=== PATIENT | female | born 1955 | race Caucasian/White ===

== ENCOUNTER → 2019-06-14 | Outpatient (CLI) | payer MEDICARE ==
--- NOTE | 2019-06-14 10:05 | Diagnostic Imaging Report ---
EXAM: US ABDOMEN COMPLETE DATE: 06/14/2019 8:39 AM INDICATION: Abdominal pain COMPARISON: None TECHNIQUE: Transverse and longitudinal henderson scale and color doppler sonographic images of the upper abdomen were obtained. FINDINGS: There is no evidence of fluid or masses seen in the area of clinical concern in the right lower quadrant. LIVER 22.1 cm in the right midclavicular line. Increased echogenicity of the liver with mildly nodular surface contour, no masses. SPLEEN 15.6 cm in maximum diameter. Normal echogenicity, no masses. GALLBLADDER No gallbladder wall thickening, distension, stone, or pericholecystic fluid. NEgative reported sonographic Contreras's sign. BILE DUCTS No intra nor extra-hepatic biliary dilation. Common bile duct measures 0.5cm PANCREAS: Visualized portions are normal. RIGHT KIDNEY: 11.0 cm Echogenicity: Normal Collecting System: No hydronephrosis Stones: None Cyst/Mass: None LEFT KIDNEY: 11.3 cm Echogenicity: Normal Collecting System: No hydronephrosis Stones: None Cyst/Mass: None VESSELS: Aorta: Visualized portions are within normal size limits Inferior Vena Cava: Visualized portions are normal Main Portal Vein: 1. cm, normal size with hepatopetal flow. FREE FLUID: None IMPRESSION: Hepatomegaly, hepatic steatosis, and mildly nodular surface contour compatible with early cirrhotic liver morphology. Splenomegaly. Signed by: Corinna Jane MD on 06/14/2019 10:02 AM
== END ==
LOC: US 08:30
PROVIDERS: ATTEND Internal Medicine
DX: R10.11 Right upper quadrant pain (principal)
CPT/HCPCS: 76700

== ENCOUNTER 2021-06-21 18:08 | Inpatient (IN) | payer MEDICARE ==
[~2021-06-21] VITALS: Ht 162.6 cm; Wt 128.4 kg
[2021-06-21 19:07] LABS: BASOPHILS % 0.6 % (0.0-1.0); EOSINOPHILS % 0.4 % (0.0-6.0); HEMATOCRIT 25.1 % (34.2-44.1); LYMPHOCYTES # (AUTO) 0.4 (1.0-3.2); LYMPHOCYTES % 5.9 % (18.0-39.1); MEAN CORPUSCULAR HGB CONC 23.5 g/dL (31-35); MEAN CORPUSCULAR VOLUME 72.3 fL (81-99); MONOCYTES # (AUTO) 0.2 (0.2-0.8); MONOCYTES % 2.5 % (4.4-11.3); NEUTROPHILS # (AUTO) 6.4 (2.1-6.9); PLATELET COUNT 267 x10e3/uL (140-360); RED BLOOD COUNT 3.47 x10e6/uL (3.6-5.1); RED CELL DISTRIBUTION WIDTH 18.9 % (11.7-14.4)
[2021-06-21 19:11] LABS: HEMOGLOBIN 5.9 g/dL (12.0-16.0)
[2021-06-21 19:12] LABS: INR 1.05; PARTIAL THROMBOPLASTIN TIME 24.7 seconds (23.8-35.5); PROTHROMBIN TIME 13.9 seconds (11.9-14.5)
[2021-06-21 19:21] LABS: ALBUMIN 3.4 g/dL (3.5-5.0); ALBUMIN/GLOBULIN RATIO 0.8 (0.8-2.0); ALKALINE PHOSPHATASE 96 IU/L (40-150); ANION GAP 16.8 mmol/L (8-16); BLOOD UREA NITROGEN 16 mg/dL (7-26); BUN/CREATININE RATIO 13 (6-25); CALCIUM 8.8 mg/dL (8.4-10.2); CARBON DIOXIDE 22 mmol/L (22-29); CHLORIDE 101 mmol/L (98-107); CREATININE, SERUM 1.19 mg/dL (0.57-1.11); EST GLOMERULAR FILTRATION RATE 46 ML/MIN (60-); GLUCOSE 304 mg/dL (74-118); POTASSIUM 3.8 mmol/L (3.5-5.1); SODIUM 136 mmol/L (136-145)
[2021-06-21 19:22] LABS: ALANINE AMINOTRANSFERASE < 6 IU/L (0-55)
[2021-06-21] MEDS ORDERED: SODIUM CHLORIDE 0.9% 250ML 250 ML IV ONE (19:45)
[2021-06-21] MEDS ORDERED: ONDANSETRON HCL INJ 2MG/ML 2ML 2 MG/ML VIAL IV PRN (19:45)
[2021-06-22 01:20] LABS: FERRITIN 6.08 ng/mL (4.63-204.00)
[2021-06-22] MEDS ORDERED: SODIUM CHLORIDE 0.9% 250ML 250 ML ONE ×3 (02:25→17:04)
[2021-06-22 07:35] LABS: BASOPHILS % 0.2 % (0.0-1.0); HEMATOCRIT 26.1 % (34.2-44.1); LYMPHOCYTES # (AUTO) 0.5 (1.0-3.2); LYMPHOCYTES % 9.4 % (18.0-39.1); MEAN CORPUSCULAR HEMOGLOBIN 19.2 pg (28-32); MEAN CORPUSCULAR HGB CONC 26.1 g/dL (31-35); MEAN CORPUSCULAR VOLUME 73.5 fL (81-99); MONOCYTES # (AUTO) 0.4 (0.2-0.8); MONOCYTES % 7.1 % (4.4-11.3); NEUTROPHILS # (AUTO) 4.6 (2.1-6.9); NEUTROPHILS % 82.8 % (38.7-80.0); PLATELET COUNT 188 x10e3/uL (140-360); RED BLOOD COUNT 3.55 x10e6/uL (3.6-5.1); RED CELL DISTRIBUTION WIDTH 18.5 % (11.7-14.4)
[2021-06-22 07:42] LABS: HEMOGLOBIN 6.8 g/dL (12.0-16.0)
[2021-06-22 07:54] LABS: ANION GAP 9.8 mmol/L (8-16); CALCIUM 8.4 mg/dL (8.4-10.2); CREATININE, SERUM 0.83 mg/dL (0.57-1.11); POTASSIUM 3.8 mmol/L (3.5-5.1)
[2021-06-22] MEDS ORDERED: DIPHENHYDRAMINE HCL 25 MG CAP PO PRN (08:00)
[2021-06-22] MEDS ORDERED: ACETAMINOPHEN 325 MG TAB PO PRN (08:00)
[2021-06-22] MEDS ORDERED: SIMETHICONE 80 MG CHEW PO PRN (08:00)
[2021-06-22] MEDS ORDERED: ALBUTEROL/IPRATROPIUM 3 ML NEB NEB PRN (08:00)
[2021-06-22] MEDS ORDERED: POTASSIUM CHLORIDE 20 MEQ TAB CR PO PRN (08:00)
[2021-06-22] MEDS ORDERED: LIDOCAINE 4% PATCH TP PRN (08:00)
[2021-06-22] MEDS ORDERED: DOCUSATE SODIUM 100 MG CAP PO PRN (08:00)
[2021-06-22] MEDS ORDERED: ONDANSETRON HCL INJ 2MG/ML 2ML 2 MG/ML VIAL IV PRN (08:00)
[2021-06-22] MEDS ORDERED: TRAMADOL HCL 50 MG TAB PO PRN (08:00)
[2021-06-22] MEDS ORDERED: BENZONATATE 100 MG CAP PO PRN (08:00)
[2021-06-22] MEDS ORDERED: MELATONIN 5 MG TABLET PO PRN (08:00)
[2021-06-22] MEDS ORDERED: HYDRALAZINE HCL 20 MG/ML VIAL IV PRN (08:00)
[2021-06-22] MEDS ORDERED: DEXTROSE 50% SYRINGE 50 ML IV PRN (08:00)
[2021-06-22] MEDS ORDERED: SODIUM CHLORIDE 0.9% 250ML 250 ML IV ONE (08:15)
[2021-06-22] MEDS ORDERED: Pantoprazole IV 40 MG/50 ML BAG IV SCH (09:00)
[2021-06-22 09:07] LABS: LYMPHOCYTES % (MANUAL) 14 % (19-48); MONOCYTES % (MANUAL) 9 % (3.4-9.0); NEUTROPHILS % (MANUAL) 77 % (40-74); PLATELET MORPHOLOGY COMMENT NORMAL; RBC MORPHOLOGY COMMENT ABNORMAL
[2021-06-22 09:09] LABS: POIKILOCYTOSIS SLIGHT; POLYCHROMASIA SL
[2021-06-22 09:10] LABS: ANISOCYTOSIS SLIGHT
[2021-06-22 09:11] LABS: MICROCYTOSIS MODE
[2021-06-22] MEDS: Pantoprazole IV 40 MG in SODIUM CHLORIDE 0.9% 50ML 50 ML IV SCH ×2 (09:14→17:00)
[2021-06-22] MEDS ORDERED: SODIUM CHLORIDE 0.9% 50ML 50 ML ONE (11:44)
[2021-06-22] MEDS ORDERED: CYANOCOBALAMIN INJ 1,000 MCG/ML VIAL IM SCH (12:45)
[2021-06-22 13:27] VITALS: BP 112/58
[2021-06-22 14:05] VITALS: BP 112/58
[2021-06-22 14:12] VITALS: BP 112/58
[2021-06-22] MEDS ORDERED: COLACE100 MG PO (14:22)
[2021-06-22] MEDS ORDERED: FUROSEMIDE40 MG PO (14:22)
[2021-06-22] MEDS ORDERED: [UNRECOGNIZED DRUG - OTHER] PO (14:22)
[2021-06-22] MEDS ORDERED: ATORVASTATIN CA20 MG PO (14:22)
[2021-06-22] MEDS ORDERED: [UNRECOGNIZED DRUG - OTHER] PO (14:22)
[2021-06-22] MEDS ORDERED: ASPIRIN81 MG PO (14:22)
[2021-06-22] MEDS ORDERED: TRICOR145 MG PO (14:22)
[2021-06-22] MEDS ORDERED: SPIRONOLACTONE25 MG PO (14:22)
[2021-06-22] MEDS ORDERED: METFORMIN HCL500 MG PO (14:22)
[2021-06-22] MEDS ORDERED: NEURONTIN300 MG PO (14:22)
[2021-06-22] MEDS ORDERED: SEROQUEL100 MG PO (14:22)
[2021-06-22 15:51] VITALS: BP 117/58
[2021-06-22] MEDS: FOLIC ACID 1 MG TAB PO SCH (17:10)
[2021-06-22 21:00] VITALS: BP 117/58
[2021-06-22 21:22] VITALS: BP 123/68
[2021-06-22] MEDS ORDERED: BISACODYL 5 MG TAB EC PO ONE (23:30)
[2021-06-23] VITALS (10 sets, daily range): BP systolic 105–122; BP diastolic 53–77
[2021-06-23] MEDS ORDERED: BISACODYL 5 MG TAB EC PO ONE
[2021-06-23] MEDS ORDERED: CITRATE OF MAGNESIA 300ML BOTTLE PO ONE ×2 (05:00→07:00)
[2021-06-23] MEDS: BUDESONIDE 0.5MG/2 ML NEB INH SCH ×2 (07:00→19:00)
[2021-06-23] MEDS ORDERED: PANTOPRAZOLE SOD 40 MG TABEC PO SCH (07:30)
[2021-06-23 07:49] LABS: BASOPHILS % 0.8 % (0.0-1.0); EOSINOPHILS # (AUTO) 0.1 (0.0-0.4); EOSINOPHILS % 1.7 % (0.0-6.0); HEMATOCRIT 31.5 % (34.2-44.1); HEMOGLOBIN 8.6 g/dL (12.0-16.0); MEAN CORPUSCULAR HEMOGLOBIN 21.2 pg (28-32); MEAN CORPUSCULAR HGB CONC 27.3 g/dL (31-35); MEAN CORPUSCULAR VOLUME 77.6 fL (81-99); MONOCYTES # (AUTO) 0.6 (0.2-0.8); MONOCYTES % 11.5 % (4.4-11.3); NEUTROPHILS # (AUTO) 3.1 (2.1-6.9); NEUTROPHILS % 65.6 % (38.7-80.0); PLATELET COUNT 181 x10e3/uL (140-360); RED BLOOD COUNT 4.06 x10e6/uL (3.6-5.1)
[2021-06-23 08:08] LABS: ANION GAP 11.5 mmol/L (8-16); CALCIUM 8.3 mg/dL (8.4-10.2); CREATININE, SERUM 0.82 mg/dL (0.57-1.11); POTASSIUM 3.5 mmol/L (3.5-5.1)
[2021-06-23] MEDS: Pantoprazole IV 40 MG in SODIUM CHLORIDE 0.9% 50ML 50 ML IV SCH ×2 (09:00→17:00)
[2021-06-23] MEDS: FOLIC ACID 1 MG TAB PO SCH (09:00)
[2021-06-23] MEDS: METHYLPREDNISOLONE SOD SUCC 40 MG/ML VIAL 1ML IV SCH ×2 (09:00→20:28)
[2021-06-23] MEDS ORDERED: BISACODYL 5 MG TAB EC PO NR (09:30)
[2021-06-23] MEDS: IRON SUCROSE 100 MG in SODIUM CHLORIDE 0.9% 100 ML 100 ML IV SCH (10:00)
[2021-06-23] MEDS ORDERED: FENTANYL CITRATE/PF 100MCG/2 ML INJ ONE (12:46)
[2021-06-23] MEDS ORDERED: HYOSCYAMINE SULFATE 0.5 MG/ML INJ ONE (13:12)
[2021-06-23] MEDS ORDERED: POVIDONE IODINE 0.05% 0.05 % ML PO ONE (13:12)
[2021-06-23] MEDS ORDERED: LIDOCAINE HCL 2% LOCAL INJ 5 ML SDV VIAL INJ ONE (13:12)
[2021-06-23] MEDS ORDERED: GLUCAGON FOR INJ 1 MG VIAL ONE (13:12)
[2021-06-23] MEDS ORDERED: EPHEDRINE SULFATE INJ 50 MG/ML VIAL ONE (13:12)
[2021-06-23] MEDS ORDERED: PROPOFOL IV EMULSION 10 MG/ML 20 ML VIAL ONE (13:12)
[2021-06-24] VITALS (7 sets, daily range): BP systolic 118–134; BP diastolic 48–55
[2021-06-24 06:09] LABS: BASOPHILS % 0.2 % (0.0-1.0); HEMATOCRIT 29.9 % (34.2-44.1); HEMOGLOBIN 8.1 g/dL (12.0-16.0); LYMPHOCYTES # (AUTO) 0.4 (1.0-3.2); LYMPHOCYTES % 7.4 % (18.0-39.1); MEAN CORPUSCULAR HEMOGLOBIN 21.2 pg (28-32); MEAN CORPUSCULAR HGB CONC 27.1 g/dL (31-35); MEAN CORPUSCULAR VOLUME 78.3 fL (81-99); MONOCYTES # (AUTO) 0.4 (0.2-0.8); MONOCYTES % 7.8 % (4.4-11.3); NEUTROPHILS # (AUTO) 4.2 (2.1-6.9); NEUTROPHILS % 84.2 % (38.7-80.0); PLATELET COUNT 178 x10e3/uL (140-360); RED BLOOD COUNT 3.82 x10e6/uL (3.6-5.1); RED CELL DISTRIBUTION WIDTH 21.2 % (11.7-14.4)
[2021-06-24 06:27] LABS: ANION GAP 9.7 mmol/L (8-16); CALCIUM 8.2 mg/dL (8.4-10.2); CREATININE, SERUM 0.72 mg/dL (0.57-1.11); POTASSIUM 3.7 mmol/L (3.5-5.1)
[2021-06-24] MEDS: FOLIC ACID 1 MG TAB PO SCH (09:23)
[2021-06-24] MEDS: FLUCONAZOLE 100 MG TAB PO SCH (09:23)
[2021-06-24] MEDS: Pantoprazole IV 40 MG in SODIUM CHLORIDE 0.9% 50ML 50 ML IV SCH ×2 (09:23→16:26)
[2021-06-24] MEDS: METHYLPREDNISOLONE SOD SUCC 40 MG/ML VIAL 1ML IV SCH ×2 (09:23→21:06)
[2021-06-24] MEDS: IRON SUCROSE 100 MG in SODIUM CHLORIDE 0.9% 100 ML 100 ML IV SCH (10:30)
[2021-06-24] MEDS ORDERED: XANAX2 MG PO (17:26)
[2021-06-24] MEDS ORDERED: CYMBALTA30 MG PO (17:26)
[2021-06-24] MEDS: ALBUTEROL/IPRATROPIUM 3 ML NEB NEB SCH (22:01)
[2021-06-25] VITALS: BP 105/58
[2021-06-25 04:00] VITALS: BP 114/55
[2021-06-25 04:43] LABS: BASOPHILS % 0.2 % (0.0-1.0); HEMATOCRIT 31.2 % (34.2-44.1); LYMPHOCYTES # (AUTO) 0.4 (1.0-3.2); LYMPHOCYTES % 8.1 % (18.0-39.1); MEAN CORPUSCULAR HEMOGLOBIN 20.6 pg (28-32); MEAN CORPUSCULAR HGB CONC 25.6 g/dL (31-35); MEAN CORPUSCULAR VOLUME 80.4 fL (81-99); MONOCYTES # (AUTO) 0.3 (0.2-0.8); MONOCYTES % 6.3 % (4.4-11.3); NEUTROPHILS # (AUTO) 3.8 (2.1-6.9); NEUTROPHILS % 85.2 % (38.7-80.0); PLATELET COUNT 163 x10e3/uL (140-360); RED BLOOD COUNT 3.88 x10e6/uL (3.6-5.1); RED CELL DISTRIBUTION WIDTH 22.4 % (11.7-14.4)
[2021-06-25 05:03] LABS: CREATININE, SERUM 0.76 mg/dL (0.57-1.11)
[2021-06-25] MEDS: BUDESONIDE 0.5MG/2 ML NEB INH SCH (07:00)
[2021-06-25 07:15] LABS: LYMPHOCYTES % (MANUAL) 10 % (19-48); MONOCYTES % (MANUAL) 4 % (3.4-9.0); NEUTROPHILS % (MANUAL) 86 % (40-74)
[2021-06-25 07:16] LABS: ANISOCYTOSIS MODERATE; HYPOCHROMASIA MODERATE; MICROCYTOSIS SLIGHT; PLATELET ESTIMATE ADEQUATE; PLATELET MORPHOLOGY COMMENT NORMAL; RBC MORPHOLOGY COMMENT ABNORMAL
[2021-06-25] MEDS: ALBUTEROL/IPRATROPIUM 3 ML NEB NEB SCH ×2 (07:23→13:48)
[2021-06-25] MEDS ORDERED: PANTOPRAZOLE SOD 40 MG TABEC PO SCH (07:30)
[2021-06-25] MEDS ORDERED: SODIUM CHLORIDE 0.9% 250ML 250 ML ONE (07:51)
[2021-06-25 08:00] VITALS: BP 123/58
[2021-06-25 08:30] VITALS: BP 123/58
[2021-06-25] MEDS: FOLIC ACID 1 MG TAB PO SCH (09:48)
[2021-06-25] MEDS: IRON SUCROSE 100 MG in SODIUM CHLORIDE 0.9% 100 ML 100 ML IV SCH (09:48)
[2021-06-25] MEDS: METHYLPREDNISOLONE SOD SUCC 40 MG/ML VIAL 1ML IV SCH (09:48)
[2021-06-25] MEDS: FLUCONAZOLE 100 MG TAB PO SCH (09:48)
[2021-06-25 11:53] VITALS: BP 117/61
[2021-06-25] MEDS ORDERED: NYSTATIN 100,000 UNITS/GM CRM 30GM TUBE TOP SCH (12:20)
[2021-06-25] MEDS ORDERED: PROTONIX40 MG PO (12:41)
[2021-06-25] MEDS ORDERED: PREDNISONE20 MG PO (12:44)
[2021-06-25] MEDS ORDERED: FEROSUL325 MG PO (12:44)
[2021-06-25] MEDS ORDERED: ONDANSETRON HCL 4 MG ORAL DISINTEGRATING TAB PO PRN (12:45)
== END 2021-06-25 15:16 | disposition home or self-care (01) | DRG 377 ==
LOC: ER 19:00 → ERHOLD 19:35 → MED/SURG2 06-22 13:21
PROVIDERS: ADMIT Internal Medicine; ATTEND Internal Medicine
PROC: 0DB58ZX Excision of Esophagus, Via Natural or Artificial Opening Endoscopic, Diagnostic (ICD-10-PCS; 2021-06-23)
PROC: 0D758ZZ Dilation of Esophagus, Via Natural or Artificial Opening Endoscopic (ICD-10-PCS; 2021-06-23)
PROC: 0DBP8ZX Excision of Rectum, Via Natural or Artificial Opening Endoscopic, Diagnostic (ICD-10-PCS; 2021-06-23)
PROC: 0DBN8ZX Excision of Sigmoid Colon, Via Natural or Artificial Opening Endoscopic, Diagnostic (ICD-10-PCS; 2021-06-23)
PROC: 0DB98ZX Excision of Duodenum, Via Natural or Artificial Opening Endoscopic, Diagnostic (ICD-10-PCS; principal; 2021-06-23 15:00)
PROC: 0DB78ZX Excision of Stomach, Pylorus, Via Natural or Artificial Opening Endoscopic, Diagnostic (ICD-10-PCS; 2021-06-23 15:00)
PROC: 0DB68ZX Excision of Stomach, Via Natural or Artificial Opening Endoscopic, Diagnostic (ICD-10-PCS; 2021-06-23 15:00)
DX: K29.71 Gastritis, unspecified, with bleeding (principal); J96.01 Acute respiratory failure with hypoxia; J44.1 Chronic obstructive pulmonary disease with (acute) exacerbation; Z68.42 Body mass index [BMI] 45.0-49.9, adult; J44.9 Chronic obstructive pulmonary disease, unspecified; E66.01 Morbid (severe) obesity due to excess calories; E03.9 Hypothyroidism, unspecified; E53.8 Deficiency of other specified B group vitamins; K22.2 Esophageal obstruction; K63.5 Polyp of colon; K62.1 Rectal polyp; D50.9 Iron deficiency anemia, unspecified; I25.2 Old myocardial infarction; Z86.74 Personal history of sudden cardiac arrest; F17.200 Nicotine dependence, unspecified, uncomplicated; I27.21 Secondary pulmonary arterial hypertension; G47.33 Obstructive sleep apnea (adult) (pediatric); I11.0 Hypertensive heart disease with heart failure; I50.9 Heart failure, unspecified; I25.10 Atherosclerotic heart disease of native coronary artery without angina pectoris
CPT/HCPCS: 36415; 43239; 45378; 45385; 71045; 80048; 80053; 82607; 82728; 82746; 82948; 83036; 83540; 83880; 84466; 84484; 85025; 85045; 85610; 85730; 86850; 86900; 86920; 88305; 88312; 93005; 93306; 94640; 94660; 99284; J1610; J1756; J1980; J2001; J2920; J3010; J3420; J7050; P9016; U0002

== ENCOUNTER 2024-06-24 21:09 | Emergency (ER) | payer MEDICARE ==
[~2024-06-24] VITALS: Ht 162.6 cm; Wt 128.4 kg
[~2024-06-24 21:09] MED LIST: ASPIRIN81 MG PO; ATORVASTATIN CA20 MG PO; COLACE100 MG PO; CYMBALTA30 MG PO; FEROSUL325 MG PO; FUROSEMIDE40 MG PO; METFORMIN HCL500 MG PO; NEURONTIN300 MG PO; PREDNISONE20 MG PO; PROTONIX40 MG PO; SEROQUEL100 MG PO; SPIRONOLACTONE25 MG PO; TRICOR145 MG PO; XANAX2 MG PO; [UNRECOGNIZED DRUG - OTHER] PO; [UNRECOGNIZED DRUG - OTHER] PO
[2024-06-24 22:13] LABS: BASOPHILS # (AUTO) 0.1 (0.0-0.1); BASOPHILS % 0.8 % (0.0-1.0); EOSINOPHILS # (AUTO) 0.1 (0.0-0.4); EOSINOPHILS % 1.8 % (0.0-6.0); HEMATOCRIT 41.2 % (34.2-44.1); HEMOGLOBIN 12.7 g/dL (12.0-16.0); LYMPHOCYTES # (AUTO) 1.1 (1.0-3.2); LYMPHOCYTES % 14.1 % (18.0-39.1); MEAN CORPUSCULAR HEMOGLOBIN 28.2 pg (28-32); MEAN CORPUSCULAR HGB CONC 30.8 g/dL (31-35); MEAN CORPUSCULAR VOLUME 91.4 fL (81-99); MONOCYTES # (AUTO) 0.8 (0.2-0.8); MONOCYTES % 9.4 % (4.4-11.3); NEUTROPHILS # (AUTO) 5.9 (2.1-6.9); NEUTROPHILS % 73.6 % (38.7-80.0); PLATELET COUNT 163 x10e3/uL (140-360); RED BLOOD COUNT 4.51 x10e6/uL (3.6-5.1); RED CELL DISTRIBUTION WIDTH 13.3 % (11.7-14.4); WHITE BLOOD COUNT 7.97 x10e3/uL (4.8-10.8)
[2024-06-24 22:14] LABS: ALBUMIN 4.3 g/dL (3.5-5.0); ALBUMIN/GLOBULIN RATIO 1.1 (0.8-2.0); ANION GAP 15.5 mmol/L (8-16); BILIRUBIN,TOTAL 0.6 mg/dL (0.2-1.2); CALCIUM 9.9 mg/dL (8.4-10.2); CREATININE, SERUM 1.56 mg/dL (0.57-1.11); POTASSIUM 3.5 mmol/L (3.5-5.1); TOTAL PROTEIN 8.3 g/dL (6.5-8.1)
[2024-06-25] MEDS: ONDANSETRON HCL INJ 2MG/ML 2ML 2 MG/ML VIAL IV STA (01:22)
[2024-06-25] MEDS ORDERED: ONDANSETRON HCL INJ 2MG/ML 2ML 2 MG/ML VIAL ONE (01:24)
[2024-06-25 01:30] VITALS: PULSE 76; RESP 17; TEMP 98.9; O2SAT 98
[2024-06-25] MEDS ORDERED: AMOX TR-K CLV1 EAC2 PO (01:32)
[2024-06-25] MEDS ORDERED: ONDANSETRON ODT4 MG SL (01:32)
== END 2024-06-25 01:50 | disposition home or self-care (01) ==
LOC: ER 21:15
DX: R50.9 Fever, unspecified (principal); J18.9 Pneumonia, unspecified organism; U07.1 COVID-19; R06.02 Shortness of breath; R05.9 Cough, unspecified; R10.84 Generalized abdominal pain; E11.65 Type 2 diabetes mellitus with hyperglycemia; J44.9 Chronic obstructive pulmonary disease, unspecified; I50.9 Heart failure, unspecified; E03.9 Hypothyroidism, unspecified; D64.9 Anemia, unspecified; E78.5 Hyperlipidemia, unspecified; F32.A Depression, unspecified; R94.31 Abnormal electrocardiogram [ECG] [EKG]; F17.210 Nicotine dependence, cigarettes, uncomplicated
CPT/HCPCS: 36415; 71045; 80053; 83880; 84484; 85025; 93005; 99284; J2405; U0002

== ENCOUNTER 2024-09-21 11:43 | Inpatient (IN) | payer MEDICARE ==
[~2024-09-21] VITALS: Ht 162.6 cm; Wt 134.7 kg
[2024-09-21] VITALS (7 sets, daily range): BP systolic 118–129; BP diastolic 64–72; PULSE 87–97; RESP 20–24; TEMP 97.9–98.2; O2SAT 100
[~2024-09-21 11:43] MED LIST changes: +AMOX TR-K CLV1 EAC2 PO; +ONDANSETRON ODT4 MG SL
[2024-09-21] MEDS ORDERED: SODIUM CHLORIDE FLUSH 10 ML SYR IV PRN (12:00)
[2024-09-21] MEDS: METHYLPREDNISOLONE SOD SUCC 125 MG/2ML VIAL IV ONE (12:09)
[2024-09-21] MEDS: LEVOFLOXACIN 750MG/D5W 150ML 150 ML IV SCH (12:09)
[2024-09-21] MEDS: ALBUTEROL/IPRATROPIUM 3 ML NEB NEB ONE (12:17)
[2024-09-21 12:36] LABS: ALBUMIN 3.4 g/dL (3.5-5.0); ALBUMIN/GLOBULIN RATIO 0.8 (0.8-2.0); BILIRUBIN,TOTAL 1.1 mg/dL (0.2-1.2); CALCIUM 9.4 mg/dL (8.4-10.2); CREATININE, SERUM 1.21 mg/dL (0.57-1.11); TOTAL PROTEIN 7.5 g/dL (6.5-8.1)
[2024-09-21 12:42] LABS: TROPONIN I 0.034 ng/mL (0-0.300)
[2024-09-21] MEDS ORDERED: IOPAMIDOL 370 MG/ML 100 ML INFUS..BTL INJ ONE (12:55)
[2024-09-21 13:05] LABS: BASOPHILS % 0.6 % (0.0-1.0); EOSINOPHILS # (AUTO) 0.1 (0.0-0.4); EOSINOPHILS % 1.2 % (0.0-6.0); LYMPHOCYTES # (AUTO) 0.6 (1.0-3.2); LYMPHOCYTES % 8.9 % (18.0-39.1); MEAN CORPUSCULAR HGB CONC 24.4 g/dL (31-35); MEAN CORPUSCULAR VOLUME 85.9 fL (81-99); MONOCYTES # (AUTO) 0.6 (0.2-0.8); MONOCYTES % 8.7 % (4.4-11.3); NEUTROPHILS # (AUTO) 5.1 (2.1-6.9); NEUTROPHILS % 80.1 % (38.7-80.0); PLATELET COUNT 174 x10e3/uL (140-360); RED BLOOD COUNT 2.48 x10e6/uL (3.6-5.1); RED CELL DISTRIBUTION WIDTH 18.4 % (11.7-14.4); WHITE BLOOD COUNT 6.41 x10e3/uL (4.8-10.8)
[2024-09-21 13:14] LABS: HEMATOCRIT 21.3 % (34.2-44.1); HEMOGLOBIN 5.2 g/dL (12.0-16.0)
[2024-09-21] MEDS ORDERED: ONDANSETRON HCL INJ 2MG/ML 2ML 2 MG/ML VIAL IV PRN ×2 (14:45→15:00)
[2024-09-21] MEDS ORDERED: MECLIZINE HCL 12.5 MG TAB PO PRN (15:00)
[2024-09-21] MEDS ORDERED: DOCUSATE SODIUM 100 MG CAP PO PRN (15:00)
[2024-09-21] MEDS ORDERED: LIDOCAINE 4% PATCH TP PRN (15:00)
[2024-09-21] MEDS ORDERED: DIPHENHYDRAMINE HCL 25 MG CAP PO PRN (15:00)
[2024-09-21] MEDS ORDERED: DEXTROSE 50% SYRINGE 50 ML IV PRN ×2 (15:00→15:45)
[2024-09-21] MEDS ORDERED: BENZONATATE 100 MG CAP PO PRN (15:00)
[2024-09-21] MEDS ORDERED: SIMETHICONE 80 MG CHEW PO PRN (15:00)
[2024-09-21] MEDS ORDERED: ALBUTEROL/IPRATROPIUM 3 ML NEB NEB PRN (15:00)
[2024-09-21] MEDS ORDERED: HYDRALAZINE HCL 20 MG/ML VIAL IV PRN (15:00)
[2024-09-21] MEDS ORDERED: ACETAMINOPHEN 325 MG TAB PO PRN (15:00)
[2024-09-21] MEDS ORDERED: NICOTINE 21 MG/EA PATCH TOP PRN (15:45)
[2024-09-21] MEDS: INSULIN LISPRO 100 UNIT/1 ML 3ML VIAL SQ SCH (16:30)
[2024-09-21] MEDS: FUROSEMIDE INJ 10 MG/ML 2 ML VIAL IV SCH (17:17)
[2024-09-21] MEDS ORDERED: SODIUM CHLORIDE 0.9% 250ML 250 ML ONE (17:18)
[2024-09-21] MEDS ORDERED: SPIRONOLACTONE50 MG PO (22:10)
[2024-09-21] MEDS ORDERED: SODIUM CHLORIDE 0.9% 250ML 500 ML ONE (22:21)
[2024-09-21] MEDS ORDERED: Azithromycin IV 500 MG 10 ML VIAL ONE (23:36)
[2024-09-22] VITALS (8 sets, daily range): BP systolic 107–120; BP diastolic 58–85; PULSE 76–89; RESP 17–26; TEMP 97.3–98.6; O2SAT 99–100
[2024-09-22] MEDS: DULOXETINE HCL 30 MG DELAYED RELEASE PO SCH (00:03)
[2024-09-22] MEDS: QUETIAPINE FUMARATE 100 MG TAB PO SCH (00:03)
[2024-09-22 02:21] LABS: FOLATE 36.9 ng/mL (7.0-15.4)
[2024-09-22] MEDS: BUDESONIDE 0.5MG/2 ML NEB INH SCH (02:41)
[2024-09-22] MEDS: ALBUTEROL/IPRATROPIUM 3 ML NEB NEB SCH (02:42)
[2024-09-22 06:05] LABS: BASOPHILS % 0.4 % (0.0-1.0); LYMPHOCYTES # (AUTO) 0.5 (1.0-3.2); LYMPHOCYTES % 9.5 % (18.0-39.1); MEAN CORPUSCULAR HEMOGLOBIN 23.2 pg (28-32); MEAN CORPUSCULAR HGB CONC 26.7 g/dL (31-35); MEAN CORPUSCULAR VOLUME 86.8 fL (81-99); MONOCYTES # (AUTO) 0.5 (0.2-0.8); MONOCYTES % 8.9 % (4.4-11.3); NEUTROPHILS # (AUTO) 4.4 (2.1-6.9); NEUTROPHILS % 80.3 % (38.7-80.0); PLATELET COUNT 139 x10e3/uL (140-360); RED CELL DISTRIBUTION WIDTH 17.7 % (11.7-14.4); WHITE BLOOD COUNT 5.49 x10e3/uL (4.8-10.8)
[2024-09-22 06:07] LABS: HEMATOCRIT 21.7 % (34.2-44.1)
[2024-09-22 06:17] LABS: HEMOGLOBIN 5.8 g/dL (12.0-16.0)
[2024-09-22 06:23] LABS: ALBUMIN/GLOBULIN RATIO 0.9 (0.8-2.0); ANION GAP 12.8 mmol/L (8-16); BILIRUBIN,TOTAL 0.8 mg/dL (0.2-1.2); CREATININE, SERUM 1.07 mg/dL (0.57-1.11); POTASSIUM 3.8 mmol/L (3.5-5.1); TOTAL PROTEIN 6.4 g/dL (6.5-8.1)
[2024-09-22 06:24] LABS: CHOL/HDL RATIO 5.2 (3.0-3.6); MAGNESIUM 1.9 MG/DL (1.3-2.1); PHOSPHORUS 3.5 MG/DL (2.3-4.7)
[2024-09-22 06:48] LABS: FERRITIN 11.28 ng/mL (4.63-204.00); THYROID STIMULATING HORMONE 0.881 uIU/mL (0.350-4.940)
[2024-09-22] MEDS ORDERED: PANTOPRAZOLE SOD 40 MG TABEC PO SCH (07:30)
[2024-09-22] MEDS: GABAPENTIN 300 MG CAP PO SCH (09:40)
[2024-09-22] MEDS: SPIRONOLACTONE 25 MG TAB PO SCH (09:40)
[2024-09-22] MEDS: FENOFIBRATE 145 MG TAB PO SCH (09:40)
[2024-09-22 10:00] LABS: HEMATOCRIT 22.5 % (34.2-44.1)
[2024-09-22 10:02] LABS: INR 1.09; PROTHROMBIN TIME 14.7 seconds (11.9-14.5)
[2024-09-22] MEDS ORDERED: SODIUM CHLORIDE 0.9% 250ML 250 ML ONE (10:30)
[2024-09-22] MEDS ORDERED: MIDAZOLAM HCL 2 MG/2 ML VIAL ONE (10:30)
[2024-09-22] MEDS ORDERED: FENTANYL CITRATE/PF 100MCG/2 ML INJ ONE (10:30)
[2024-09-22] MEDS ORDERED: LIDOCAINE HCL 1% LOCAL INJ 20 ML VIAL ONE (10:35)
[2024-09-22 10:59] LABS: ABG HCO3 23 mmol/L (22-26); ABG PCO2 37 mmHg (35-45); ABG PO2 127 mmHg (80-105); ABG TCO2 24
[2024-09-22] MEDS: DIPHENHYDRAMINE HCL 25 MG CAP PO ONE (14:25)
[2024-09-22] MEDS ORDERED: HYDROCODONE/APAP 5MG-325MG TAB PO PRN (16:00)
[2024-09-22] MEDS: SODIUM CHLORIDE 0.9% 250ML 250 ML IV ONE (17:56)
[2024-09-22] MEDS: METHYLPREDNISOLONE SOD SUCC 40 MG/ML VIAL 1ML IV ONE (18:01)
[2024-09-22] MEDS: SODIUM CHLORIDE 0.9% 250ML 250 ML IV STA (18:35)
[2024-09-22] MEDS: ATORVASTATIN 20 MG TAB PO SCH (20:52)
[2024-09-22 22:12] LABS: HEMATOCRIT 26.7 % (34.2-44.1); HEMOGLOBIN 7.4 g/dL (12.0-16.0)
[2024-09-23] VITALS (9 sets, daily range): BP systolic 112–126; BP diastolic 47–78; PULSE 78–90; RESP 16–24; TEMP 97.2–98.9; O2SAT 95–100
[2024-09-23] MEDS: CYANOCOBALAMIN 1,000 MCG TAB PO ONE (00:52)
[2024-09-23 06:13] LABS: BASOPHILS % 0.2 % (0.0-1.0); HEMATOCRIT 24.4 % (34.2-44.1); LYMPHOCYTES # (AUTO) 0.4 (1.0-3.2); LYMPHOCYTES % 9.2 % (18.0-39.1); MEAN CORPUSCULAR HEMOGLOBIN 23.7 pg (28-32); MEAN CORPUSCULAR HGB CONC 27.5 g/dL (31-35); MEAN CORPUSCULAR VOLUME 86.2 fL (81-99); MONOCYTES # (AUTO) 0.4 (0.2-0.8); MONOCYTES % 8.9 % (4.4-11.3); NEUTROPHILS # (AUTO) 3.6 (2.1-6.9); NEUTROPHILS % 81.3 % (38.7-80.0); PLATELET COUNT 130 x10e3/uL (140-360); RED BLOOD COUNT 2.83 x10e6/uL (3.6-5.1); RED CELL DISTRIBUTION WIDTH 17.6 % (11.7-14.4); WHITE BLOOD COUNT 4.48 x10e3/uL (4.8-10.8)
[2024-09-23 06:17] LABS: HEMOGLOBIN 6.7 g/dL (12.0-16.0)
[2024-09-23 06:39] LABS: ANION GAP 13.9 mmol/L (8-16); CALCIUM 9.2 mg/dL (8.4-10.2); CREATININE, SERUM 1.01 mg/dL (0.57-1.11); POTASSIUM 3.9 mmol/L (3.5-5.1)
[2024-09-23] MEDS: IRON SUCROSE 100 MG in SODIUM CHLORIDE 0.9% 100 ML IV SCH (08:14)
[2024-09-23] MEDS: CYANOCOBALAMIN 1,000 MCG TAB PO SCH (08:14)
[2024-09-23] MEDS: FUROSEMIDE INJ 10 MG/ML 2 ML VIAL IV SCH (21:04)
[2024-09-24] VITALS (11 sets, daily range): BP systolic 90–127; BP diastolic 27–81; PULSE 65–94; RESP 18–39; TEMP 97.6–98; O2SAT 97–100
[2024-09-24 06:05] LABS: EOSINOPHILS # (AUTO) 0.1 (0.0-0.4); EOSINOPHILS % 1.5 % (0.0-6.0); HEMATOCRIT 31.8 % (34.2-44.1); HEMOGLOBIN 8.8 g/dL (12.0-16.0); LYMPHOCYTES # (AUTO) 0.5 (1.0-3.2); LYMPHOCYTES % 11.2 % (18.0-39.1); MEAN CORPUSCULAR HEMOGLOBIN 24.1 pg (28-32); MEAN CORPUSCULAR HGB CONC 27.7 g/dL (31-35); MEAN CORPUSCULAR VOLUME 87.1 fL (81-99); MONOCYTES # (AUTO) 0.5 (0.2-0.8); MONOCYTES % 11.7 % (4.4-11.3); NEUTROPHILS % 74.1 % (38.7-80.0); PLATELET COUNT 128 x10e3/uL (140-360); RED BLOOD COUNT 3.65 x10e6/uL (3.6-5.1); RED CELL DISTRIBUTION WIDTH 17.3 % (11.7-14.4); WHITE BLOOD COUNT 4.02 x10e3/uL (4.8-10.8)
[2024-09-24 06:23] LABS: ANION GAP 13.5 mmol/L (8-16); CALCIUM 8.9 mg/dL (8.4-10.2); CREATININE, SERUM 0.99 mg/dL (0.57-1.11); POTASSIUM 3.5 mmol/L (3.5-5.1)
[2024-09-24] MEDS ORDERED: FUROSEMIDE INJ 10 MG/ML 4 ML VIAL IV SCH (16:15)
[2024-09-24] MEDS ORDERED: SODIUM CHLORIDE 0.9% 100 ML ONE (18:10)
[2024-09-24] MEDS: FUROSEMIDE INJ 100 MG in SODIUM CHLORIDE 0.9% 90 ML IV SCH (18:21)
[2024-09-24] MEDS: METHYLPREDNISOLONE SOD SUCC 40 MG/ML VIAL 1ML IV SCH (21:03)
[2024-09-25] VITALS (20 sets, daily range): BP systolic 101–134; BP diastolic 44–77; PULSE 64–95; RESP 18–30; TEMP 97.5–98.4; O2SAT 89–100
[2024-09-25 06:41] LABS: BASOPHILS % 0.6 % (0.0-1.0); HEMATOCRIT 29.7 % (34.2-44.1); HEMOGLOBIN 8.4 g/dL (12.0-16.0); LYMPHOCYTES # (AUTO) 0.2 (1.0-3.2); LYMPHOCYTES % 6.7 % (18.0-39.1); MEAN CORPUSCULAR HEMOGLOBIN 24.3 pg (28-32); MEAN CORPUSCULAR HGB CONC 28.3 g/dL (31-35); MEAN CORPUSCULAR VOLUME 86.1 fL (81-99); MONOCYTES # (AUTO) 0.2 (0.2-0.8); MONOCYTES % 5.6 % (4.4-11.3); NEUTROPHILS # (AUTO) 3.1 (2.1-6.9); NEUTROPHILS % 86.5 % (38.7-80.0); PLATELET COUNT 130 x10e3/uL (140-360); RED BLOOD COUNT 3.45 x10e6/uL (3.6-5.1); RED CELL DISTRIBUTION WIDTH 17.3 % (11.7-14.4); WHITE BLOOD COUNT 3.57 x10e3/uL (4.8-10.8)
[2024-09-25 06:55] LABS: ANION GAP 13.1 mmol/L (8-16); CALCIUM 8.9 mg/dL (8.4-10.2); CREATININE, SERUM 0.87 mg/dL (0.57-1.11)
[2024-09-25 07:00] LABS: POTASSIUM 3.1 mmol/L (3.5-5.1)
[2024-09-25] MEDS: POTASSIUM CHLORIDE 20 MEQ TAB CR PO PRN (08:45)
[2024-09-25] MEDS: POTASSIUM CHLORIDE 20MEQ/100ML 100 ML IV PRN (10:22)
[2024-09-25] MEDS: FUROSEMIDE INJ 100 MG in SODIUM CHLORIDE 0.9% 90 ML IV SCH (12:03)
[2024-09-25] MEDS: SPIRONOLACTONE 25 MG TAB PO SCH (16:28)
[2024-09-26] VITALS (21 sets, daily range): BP systolic 88–122; BP diastolic 54–83; PULSE 71–96; RESP 14–35; TEMP 97.7–98.4; O2SAT 94–100
[2024-09-26 06:56] LABS: BASOPHILS % 0.7 % (0.0-1.0); HEMOGLOBIN 8.4 g/dL (12.0-16.0); LYMPHOCYTES # (AUTO) 0.3 (1.0-3.2); LYMPHOCYTES % 10.6 % (18.0-39.1); MEAN CORPUSCULAR HEMOGLOBIN 24.5 pg (28-32); MEAN CORPUSCULAR VOLUME 87.5 fL (81-99); MONOCYTES # (AUTO) 0.3 (0.2-0.8); MONOCYTES % 10.3 % (4.4-11.3); NEUTROPHILS # (AUTO) 2.2 (2.1-6.9); PLATELET COUNT 115 x10e3/uL (140-360); RED BLOOD COUNT 3.43 x10e6/uL (3.6-5.1); RED CELL DISTRIBUTION WIDTH 17.6 % (11.7-14.4); WHITE BLOOD COUNT 2.82 x10e3/uL (4.8-10.8)
[2024-09-26 07:10] LABS: ANION GAP 13.2 mmol/L (8-16); CALCIUM 8.8 mg/dL (8.4-10.2); CREATININE, SERUM 0.98 mg/dL (0.57-1.11)
[2024-09-26 07:11] LABS: POTASSIUM 3.2 mmol/L (3.5-5.1)
[2024-09-26] MEDS: ACETAZOLAMIDE SODIUM 500 MG/VIAL IV ONE (14:27)
[2024-09-26] MEDS: SODIUM CHLORIDE 0.9% 250ML 250 ML IV ONE ×2 (19:10→19:11)
[2024-09-27] VITALS (22 sets, daily range): BP systolic 49–142; BP diastolic 38–125; PULSE 64–107; RESP 18–37; TEMP 98–98.5; O2SAT 93–100
[2024-09-27 06:51] LABS: BASOPHILS % 1.2 % (0.0-1.0); EOSINOPHILS % 1.2 % (0.0-6.0); HEMATOCRIT 29.3 % (34.2-44.1); HEMOGLOBIN 8.5 g/dL (12.0-16.0); LYMPHOCYTES # (AUTO) 0.6 (1.0-3.2); MEAN CORPUSCULAR HEMOGLOBIN 24.9 pg (28-32); MEAN CORPUSCULAR VOLUME 85.7 fL (81-99); MONOCYTES # (AUTO) 0.4 (0.2-0.8); MONOCYTES % 14.6 % (4.4-11.3); NEUTROPHILS # (AUTO) 1.5 (2.1-6.9); NEUTROPHILS % 58.6 % (38.7-80.0); PLATELET COUNT 114 x10e3/uL (140-360); RED BLOOD COUNT 3.42 x10e6/uL (3.6-5.1); RED CELL DISTRIBUTION WIDTH 17.9 % (11.7-14.4); WHITE BLOOD COUNT 2.54 x10e3/uL (4.8-10.8)
[2024-09-27 07:10] LABS: ANION GAP 13.1 mmol/L (8-16); CALCIUM 8.7 mg/dL (8.4-10.2); CREATININE, SERUM 1.15 mg/dL (0.57-1.11)
[2024-09-27 07:12] LABS: POTASSIUM 3.1 mmol/L (3.5-5.1)
[2024-09-27] MEDS: METHYLPREDNISOLONE SOD SUCC 40 MG/ML VIAL 1ML IV SCH (08:42)
[2024-09-27] MEDS ORDERED: LEVOTHYROXINE50 MC1 PO (11:38)
[2024-09-27] MEDS: POTASSIUM CHLORIDE 20 MEQ TAB CR PO ONE (15:38)
[2024-09-27] MEDS: FLUCONAZOLE 100 MG TAB PO ONE (20:34)
[2024-09-28] VITALS (8 sets, daily range): BP systolic 101–130; BP diastolic 51–67; PULSE 67–92; RESP 17–21; TEMP 97.1–97.8; O2SAT 98–100
[2024-09-28 06:58] LABS: BASOPHILS % 0.8 % (0.0-1.0); EOSINOPHILS # (AUTO) 0.1 (0.0-0.4); EOSINOPHILS % 2.3 % (0.0-6.0); HEMATOCRIT 29.5 % (34.2-44.1); HEMOGLOBIN 8.1 g/dL (12.0-16.0); LYMPHOCYTES # (AUTO) 0.8 (1.0-3.2); LYMPHOCYTES % 29.3 % (18.0-39.1); MEAN CORPUSCULAR HEMOGLOBIN 24.8 pg (28-32); MEAN CORPUSCULAR HGB CONC 27.5 g/dL (31-35); MEAN CORPUSCULAR VOLUME 90.2 fL (81-99); MONOCYTES # (AUTO) 0.3 (0.2-0.8); MONOCYTES % 12.5 % (4.4-11.3); NEUTROPHILS # (AUTO) 1.4 (2.1-6.9); NEUTROPHILS % 54.7 % (38.7-80.0); PLATELET COUNT 110 x10e3/uL (140-360); RED BLOOD COUNT 3.27 x10e6/uL (3.6-5.1); WHITE BLOOD COUNT 2.63 x10e3/uL (4.8-10.8)
[2024-09-28 07:26] LABS: ANION GAP 11.4 mmol/L (8-16); CALCIUM 9.1 mg/dL (8.4-10.2); CREATININE, SERUM 1.13 mg/dL (0.57-1.11)
[2024-09-28 07:31] LABS: POTASSIUM 3.4 mmol/L (3.5-5.1)
[2024-09-28] MEDS: FUROSEMIDE INJ 10 MG/ML 4 ML VIAL IV SCH (09:20)
[2024-09-28] MEDS: NYSTATIN 100,000 UNITS/GM CRM 30GM TUBE TOP SCH (09:51)
[2024-09-28] MEDS: EPOETIN ALFA-EPBX 10,000 UNIT/ML VIAL SC SCH (13:00)
[2024-09-28] MEDS ORDERED: ALTEPLASE RECOMBINANT 2 MG/2 ML VIAL IV PRN (14:45)
[2024-09-28] MEDS: FLUCONAZOLE 100 MG TAB PO ONE (17:32)
[2024-09-29] VITALS (13 sets, daily range): BP systolic 117–139; BP diastolic 55–72; PULSE 70–101; RESP 17–22; TEMP 97.2–98.7; O2SAT 89–100
[2024-09-29 06:04] LABS: ANION GAP 11.5 mmol/L (8-16); CALCIUM 9.3 mg/dL (8.4-10.2); CREATININE, SERUM 1.2 mg/dL (0.57-1.11); POTASSIUM 3.5 mmol/L (3.5-5.1)
[2024-09-29] MEDS ORDERED: ULTRAM 50MG50 MG PO (08:28)
[2024-09-29] MEDS ORDERED: PREDNISONE 20 MG TAB PO SCH (09:00)
[2024-09-29] MEDS: IRON-VITAMIN-MINERAL CAPSULE PO SCH (10:10)
[2024-09-29] MEDS: PREDNISONE 10 MG TAB PO SCH (10:10)
[2024-09-30] VITALS (9 sets, daily range): BP systolic 109–147; BP diastolic 49–70; PULSE 59–95; RESP 16–22; TEMP 97.2–98.6; O2SAT 95–100
[2024-10-01] VITALS (13 sets, daily range): BP systolic 95–164; BP diastolic 46–75; PULSE 62–97; RESP 16–24; TEMP 97–99; O2SAT 92–100
[2024-10-01] MEDS: SODIUM CHLORIDE 0.9% 250ML 250 ML ONE (12:28)
[2024-10-01] MEDS ORDERED: PANTOPRAZOLE SO40 MG PO (12:31)
[2024-10-01] MEDS ORDERED: AUGMENTIN PO (12:31)
[2024-10-01] MEDS ORDERED: PREDNISONE10 MG PO (12:32)
[2024-10-01] MEDS ORDERED: PROAIR INHALER INH (12:33)
[2024-10-01] MEDS ORDERED: POTASSIUM CHLO20 ME1 PO (13:11)
[2024-10-02] VITALS (7 sets, daily range): BP systolic 118–127; BP diastolic 49–78; PULSE 72–113; RESP 18–21; TEMP 97.6–98.2; O2SAT 100
[2024-10-02] MEDS: ALPRAZOLAM 1 MG TAB PO PRN (12:54)
[2024-10-02] MEDS: FLUTICASONE PROPIONATE NASAL SPRAY NS SCH (17:59)
[2024-10-02] MEDS: LORATADINE 10 MG TAB PO SCH (18:00)
[2024-10-02] MEDS: MELATONIN 5 MG TABLET PO PRN (21:07)
[2024-10-03] VITALS (7 sets, daily range): BP systolic 121–133; BP diastolic 47–79; PULSE 75–90; RESP 20–26; TEMP 97.5–97.8; O2SAT 98–100
[2024-10-03 10:56] LABS: HEMATOCRIT 31.7 % (34.2-44.1); HEMOGLOBIN 8.9 g/dL (12.0-16.0)
[2024-10-03 11:14] LABS: ANION GAP 13.6 mmol/L (8-16); CALCIUM 9.3 mg/dL (8.4-10.2); CREATININE, SERUM 0.92 mg/dL (0.57-1.11); POTASSIUM 3.6 mmol/L (3.5-5.1)
[2024-10-04 06:51] LABS: ABG HCO3 23 mmol/L (22-26); ABG PCO2 37 mmHg (35-45); ABG PO2 127 mmHg (80-105); ABG TCO2 24
== END 2024-10-03 17:05 | disposition home or self-care (01) | DRG 180 ==
LOC: ER 11:46 → ERHOLD 14:33 → MED/SURG2 16:50 → ICU 09-24 17:04 → MED/SURG 09-28 00:36
PROVIDERS: ADMIT Internal Medicine; ATTEND Internal Medicine
PROC: 30233N1 Transfusion of Nonautologous Red Blood Cells into Peripheral Vein, Percutaneous Approach (ICD-10-PCS; 2024-09-21)
PROC: 5A09557 Assistance with Respiratory Ventilation, Greater than 96 Consecutive Hours, Continuous Positive Airway Pressure (ICD-10-PCS; 2024-09-21)
PROC: 0BBF3ZX Excision of Right Lower Lung Lobe, Percutaneous Approach, Diagnostic (ICD-10-PCS; principal; 2024-09-22)
PROC: 4A133R1 Monitoring of Arterial Saturation, Peripheral, Percutaneous Approach (ICD-10-PCS; 2024-09-22)
PROC: 02HV33Z Insertion of Infusion Device into Superior Vena Cava, Percutaneous Approach (ICD-10-PCS; 2024-09-24)
DX: C34.31 Malignant neoplasm of lower lobe, right bronchus or lung (principal); I11.0 Hypertensive heart disease with heart failure; I50.33 Acute on chronic diastolic (congestive) heart failure; J18.9 Pneumonia, unspecified organism; J96.22 Acute and chronic respiratory failure with hypercapnia; J96.21 Acute and chronic respiratory failure with hypoxia; J44.0 Chronic obstructive pulmonary disease with (acute) lower respiratory infection; E66.2 Morbid (severe) obesity with alveolar hypoventilation; Z68.43 Body mass index [BMI] 50.0-59.9, adult; D62 Acute posthemorrhagic anemia; J44.1 Chronic obstructive pulmonary disease with (acute) exacerbation; I50.812 Chronic right heart failure; I27.29 Other secondary pulmonary hypertension; Z99.81 Dependence on supplemental oxygen; E11.9 Type 2 diabetes mellitus without complications; D63.0 Anemia in neoplastic disease; K76.0 Fatty (change of) liver, not elsewhere classified; E03.9 Hypothyroidism, unspecified; E78.5 Hyperlipidemia, unspecified; R53.81 Other malaise; M19.90 Unspecified osteoarthritis, unspecified site; E87.70 Fluid overload, unspecified; F32.A Depression, unspecified; F41.9 Anxiety disorder, unspecified; K59.09 Other constipation; Z79.52 Long term (current) use of systemic steroids; Z79.82 Long term (current) use of aspirin; Z79.84 Long term (current) use of oral hypoglycemic drugs; F17.210 Nicotine dependence, cigarettes, uncomplicated; Z71.6 Tobacco abuse counseling; Z88.2 Allergy status to sulfonamides; Z88.1 Allergy status to other antibiotic agents; Z88.7 Allergy status to serum and vaccine
CPT/HCPCS: 32408; 36415; 36569; 71045; 71046; 71260; 76604; 77012; 80048; 80053; 80061; 82607; 82728; 82746; 82805; 82948; 83010; 83036; 83540; 83735; 83880; 84100; 84443; 84466; 84484; 85014; 85018; 85025; 85045; 85610; 86850; 86900; 86920; 87040; 88305; 88342; 93005; 93306; 94640; 94660; 94760; 94799; 99152; 99153; 99285; J0696; J1756; J1940; J2003; J2250; J2470; J2919; J3480; J7050; J7512; P9016; Q9967